=== PATIENT | male | born 1965 | race Caucasian/White ===

== ENCOUNTER → 2020-11-18 | Outpatient (CLI) | payer OTHER ==
[~2020-11-18] MED LIST: CELE200C PO; IOHEXOL 300 MG/ML 75 ML VIAL. IV ONE; PANT40TA3 PO; SIMV40TA PO
--- NOTE | 2020-11-18 16:43 | RAD ---
EXAM: CT abdomen with contrast. HISTORY: Renal lesion. TECHNIQUE: CT of the abdomen was performed after the intravenous administration of iodinated contrast . One or more of the following individualized dose reduction techniques were utilized for this examin ation: 1. Automated exposure control. 2. Adjustment of the mA and/or kV according to patient size. 3. Use of iterative reconstruction technique. COMPARISON: None. FINDINGS: An uncalcified nodule in the right lower lobe on image 53 measures 3 mm and is likely benig n and requires no further follow-up at this small size in the absence of strong risk factors. A 2 mm likely benign nodule is noted in the left lower lobe on image 16. Small pneumatoceles versus mild meera trilobular emphysema are suspected in the left lower lobe. Bone windows reveal no suspicious lesions. Left colonic diverticulosis is moderate. There is no small bowel obstruction. There are no pathologic ally enlarged lymph nodes. At least mild diffuse hepatic steatosis is suspected. The gallbladder, trevino creas, spleen and adrenal glands are unremarkable. No precontrast series is available to assess pre-/post enhancement. Nevertheless, no enhancing lesion s are identified. A cyst at the left renal lower pole measures 4.5 x 4.2 cm. There is a thin fluid fl uid level of hyperdense material dependently, suggesting milk of calcium or hemorrhagic contents. No solid enhancing component is seen. Elsewhere, benign appearing cysts measure up to 9 mm in the left r enal interpolar region, and 4 mm in the right upper pole. IMPRESSION: 1. 4.5 cm mildly, located cyst in the left renal lower pole. No solid or suspicious renal lesions are seen bilaterally. Electronically signed by: Soraya Chao MD (11/18/2020 4:40 PM) [id number]
== END ==
LOC: CT 13:42
PROVIDERS: ATTEND Nurse Practitioner Family
DX: N28.1 Cyst of kidney, acquired (principal)
CPT/HCPCS: 74160; Q9967